=== PATIENT | male | born 1930 | race Caucasian/White ===

== ENCOUNTER → 2016-06-19 | Outpatient (CLI) | payer MEDICARE, OTHER ==
[~2016-06-19] MED LIST: /TAMS4CA PO; ACET-654 PO; ACET650S3 PR; ASPI81TA85 PO; ATEN25TA PO; AUGM875T27 PO; COQ-100C PO; DOCU100T PO; GLUCTAB6 PO; MULTTAB4 PO; NAPR500T2 PO
== END ==
LOC: M LAB 11:33
PROVIDERS: ATTEND Nurse Practitioner Adult Health
DX: Z85.46 Personal history of malignant neoplasm of prostate (principal)

== ENCOUNTER → 2017-03-08 | Outpatient (CLI) | payer MEDICARE, OTHER ==
[2017-03-08 11:53] LABS: PROSTATIC SPECIFIC AG MONITOR 1.74 NG/ML (< 4.0)
== END ==
LOC: M LAB 10:48
DX: Z85.46 Personal history of malignant neoplasm of prostate (principal); Z08 Encounter for follow-up examination after completed treatment for malignant neoplasm
CPT/HCPCS: 84153

== ENCOUNTER → 2017-09-12 | Outpatient (CLI) | payer MEDICARE, OTHER ==
[2017-09-12 10:09] LABS: PROSTATIC SPECIFIC AG MONITOR 1.56 NG/ML (< 4.0)
== END ==
LOC: M LAB 08:47
DX: Z08 Encounter for follow-up examination after completed treatment for malignant neoplasm (principal); Z85.46 Personal history of malignant neoplasm of prostate
CPT/HCPCS: 84153

== ENCOUNTER → 2018-04-03 | Outpatient (REF) | payer MEDICARE, OTHER ==
[2018-04-03 13:53] LABS: BASO % 0.4 % (0.0-1.0); EOS # 0.2 10^3/uL (0.0-0.50); EOS % 1.9 % (0.0-3.0); HEMATOCRIT 38.2 % (42.0-52.0); HEMOGLOBIN 12.5 g/dl (13.5-17.5); LYMPH % 12.6 % (24.0-44.0); MEAN CORPUSCULAR HEMOGLOBIN 30.6 pg (27.0-33.0); MEAN CORPUSCULAR HGB CONC 32.7 g/dl (32.0-36.5); MEAN CORPUSCULAR VOLUME 93.6 fl (80.0-96.0); MONO # 0.5 10^3/uL (0.0-0.8); MONO % 6.2 % (0.0-5.0); NEUTROPHILS # 6.4 10^3/uL (1.8-7.7); NEUTROPHILS % 78.7 % (36.0-66.0); PLATELET COUNT, AUTOMATED 222 10^3/uL (150-450); RED BLOOD COUNT 4.08 10^6/uL (4.30-6.10); WHITE BLOOD COUNT 8.1 10^3/uL (4.0-10.0)
[2018-04-03 14:08] LABS: ALBUMIN 3.7 GM/DL (3.2-5.2); ALT/SGPT 24 U/L (12-78); BILIRUBIN,TOTAL 0.6 MG/DL (0.2-1.0); BLOOD UREA NITROGEN 38 MG/DL (7-18); CARBON DIOXIDE LEVEL 24 MEQ/L (21-32); CHLORIDE LEVEL 105 MEQ/L (98-107); CREATININE FOR GFR 1.44 MG/DL (0.70-1.30); FREE T4 1.51 NG/DL (0.76-1.46); GLOMERULAR FILTRATION RATE 49.5 (>35); GLUCOSE, FASTING 106 MG/DL (70-100); POTASSIUM SERUM 4.6 MEQ/L (3.5-5.1); RHEUMATOID FACTOR QUANT < 10.0 IU/ML (<15.0); SODIUM LEVEL 137 MEQ/L (136-145); TOTAL PROTEIN 6.9 GM/DL (6.4-8.2)
[2018-04-03 14:10] LABS: FOLATE > 24.0 NG/ML
[2018-04-03 14:22] LABS: ERYTHROCYTE SEDIMENTATION RATE 26 mm/hr (0-30)
[2018-04-03 14:23] LABS: HEMOGLOBIN A1c 5.8 %
[2018-04-05 07:43] LABS: VITAMIN B12 LEVEL > 2000 PG/ML (232-1245)
[2018-04-12 00:07] LABS: ANTINUCLEAR ANTIBODIES DIRECT Negative (Negative); VITAMIN B6,PYRIDOXAL PHOSPHATE 36.3 ug/L (5.3-46.7); VITAMIN E(ALPHA TOCOPHEROL) 18.4 mg/L (9.0-29.0); VITAMIN E(GAMMA TOCOPHEROL) 0.4 mg/L (0.5-4.9)
== END ==
LOC: M LABNEURO 13:29
PROVIDERS: ATTEND Psychiatry & Neurology Neurology
DX: E11.9 Type 2 diabetes mellitus without complications (principal); Z86.73 Personal history of transient ischemic attack (TIA), and cerebral infarction without residual deficits; E07.9 Disorder of thyroid, unspecified

== ENCOUNTER 2019-01-03 11:28 | Emergency (ER) | payer MEDICARE, OTHER ==
[~2019-01-03] VITALS: Ht 175.3 cm; Wt 72.7 kg
[~2019-01-03 11:28] MED LIST changes: -/TAMS4CA PO; +FLOM0.4C39 PO
[2019-01-03] MEDS ORDERED: CITA10TA6 PO (11:59)
[2019-01-03] MEDS ORDERED: CLOP75TA2 PO (11:59)
[2019-01-03] MEDS ORDERED: DONE10TA90 PO (11:59)
[2019-01-03] MEDS ORDERED: ADACEL/BOOSTRIX VACCINE (DIPHTH/PERTUSS/ACELL/TETANUS)0.5ML SYR (90715) IM ONE (12:00)
[2019-01-03] MEDS ORDERED: EDARBI PO (12:00)
--- NOTE | 2019-01-03 12:11 | REP ---
CT brain and facial bones: 01/03/2019. Indication: Head/face trauma. Comparison: New 05/24/2012. Technique: Unenhanced axial CT images of the face and brain were performed with facial coronal and sagittal reconstructions provided. Findings: There is no acute intracranial hemorrhage, acute cortical infarction, mass effect, hydrocephalus or acute calvarial fracture. Anterior left scalp small hematoma is present. Diffuse age-related volume loss is noted. There are multiple areas of patchy hypoattenuation scattered throughout the O cerebral hemisphere white matter. There is an age indeterminate nondisplaced right nasal bone fracture. No additional acute facial bone fractures are present. There is no TMJ subluxation or dislocation. There is no significant blood within the paranasal sinuses. No post traumatic ocular or intraorbital abnormalities are present. The mastoid air cells are clear. Impression: No acute intracranial process. Small anterior left scalp hematoma. Nondisplaced age indeterminate right nasal bone fracture. No acute calvarial fractures. Volume loss and age-related chronic small vessel ischemic changes. Electronically Signed by Saw Baez DO 01/03/2019 12:02 P
--- NOTE | 2019-01-03 13:00 | REP ---
CT cervical spine: 01/03/2019. Indication: Cervical spine trauma. Comparison: New none. Technique: Unenhanced axial CT images of the cervical spine were obtained with coronal and sagittal reconstructions provided. Findings: There is no acute fracture, subluxation or dislocation. There is minimal anterolisthesis of C4 on C5 with a C4/C5 vacuum disc phenomenon present. There is no evidence of hemorrhage or additional acute post traumatic abnormalities within the spinal canal. The visualized lungs are clear. The airway is patent. Bilateral palatine tonsiliths are noted. Extensive multilevel degenerative sequelae are present predominately involving facet arthropathy more pronounced on the left. Impression: No acute post traumatic osseous cervical spine injury. Electronically Signed by Saw Baez DO 01/03/2019 12:52 P
[2019-01-03 13:57] VITALS: BP 162/82
== END 2019-01-03 14:05 | disposition home or self-care (01) ==
LOC: M ED 11:28
DX: R55 Syncope and collapse (principal); S02.2XXA Fracture of nasal bones, initial encounter for closed fracture; S00.83XA Contusion of other part of head, initial encounter; W18.39XA Other fall on same level, initial encounter; Y92.018 Other place in single-family (private) house as the place of occurrence of the external cause; I11.0 Hypertensive heart disease with heart failure; I50.9 Heart failure, unspecified; E07.9 Disorder of thyroid, unspecified; Z85.46 Personal history of malignant neoplasm of prostate; Z86.718 Personal history of other venous thrombosis and embolism; Z79.899 Other long term (current) drug therapy; Z79.82 Long term (current) use of aspirin; Z79.01 Long term (current) use of anticoagulants

== ENCOUNTER → 2020-09-07 | Outpatient (CLI) | payer MEDICARE, OTHER ==
[~2020-09-07] MED LIST changes: +CITA10TA6 PO; +CLOP75TA2 PO; +DONE10TA90 PO; +EDARBI PO
--- NOTE | 2020-09-07 14:23 | REP ---
INDICATION: PSORIASIS VULGARIS. COMPARISON: Multiple the latest 05/24/2012 FINDINGS: The superior mediastinal structures are midline. The cardiac silhouette is unremarkable in size, shape, and position. The diaphragmatic surfaces of the lungs are regular, and the costophrenic angles are clear. The pulmonary tai are clear. The imaged osseous structures are intact. IMPRESSION: There is no acute cardiopulmonary disease. Bilateral airspace opacities seen previously have cleared. <Electronically signed by Gil Fair > 09/07/20 [id number]
[2020-09-07 17:32] LABS: HEPATITIS A ANTIBODY IGM NEGATIVE (NEGATIVE); HEPATITIS B SURFACE ANTIBODY NEGATIVE (POSITIVE); HEPATITIS B SURFACE ANTIGEN NEGATIVE (NEGATIVE); HIV 1&2 SCREEN CENTAUR NEGATIVE (NEGATIVE)
== END ==
LOC: M WUC 11:42
PROVIDERS: ATTEND Nurse Practitioner Family
DX: L40.0 Psoriasis vulgaris (principal)